=== PATIENT | male | born 1985 | race African-American/Black ===

== ENCOUNTER 2022-03-08 16:29 | Emergency (ER) | payer SELFPAY | END 2022-03-08 16:58 | disposition home or self-care (01) | LOC: ERS 16:29 | DX: Z76.0 Encounter for issue of repeat prescription (principal); E11.9 Type 2 diabetes mellitus without complications; E78.5 Hyperlipidemia, unspecified; E78.00 Pure hypercholesterolemia, unspecified; I10 Essential (primary) hypertension; Z79.899 Other long term (current) drug therapy; Z79.4 Long term (current) use of insulin | CPT/HCPCS: 99281 ==